=== PATIENT | female | born 1975 | race African-American/Black ===

== ENCOUNTER → 2016-09-12 | Outpatient (CLI) | payer OTHER ==
[~2016-09-12] MED LIST: FLEXERIL PO; FLEXERIL10 MG PO; MEDROL PO; NAPROXEN PO; NORCO 5/325 TAB1 TAB PO; PHENERGAN PO; ZITHROMAX PO
--- NOTE | ~2016-09-12 | US6 ---
[facility] A Service of [facility] RADIOLOGY TEXT RESULTS PATIENT: NAYELI TAVERAS LOCATION: US : 71 UNIT #: [id number] AGE: [address]: Norbert Garzon MD SEX: F ORDER DR: [id number] [facility] [address] [place], [place] [address] [id number] O MR#: [id number] #: [id number] NAME: NAYELI TAVERAS : 1975 SEX: F STUDY DATE/TIME: 09/12/2016 11:01 UNIT: [facility] ROOM: STUDY DESCRIPTION: US Abdominal Limited Attending Physician: Norbert Garzon M.D. Referring Physician: Norbert Garzon M.D. Ordering Physician: Norbert Garzon M.D. Primary Care Physician: [facility]. MEDICAL IMAGING REPORT This report is preliminary unless electronic signature is present EXAM Right upper quadrant abdominal ultrasound. INDICATION Generalized abdominal pain for the past 3 months. PROCEDURE Wodo-scale and Doppler imaging right upper quadrant of the abdomen. COMPARISON None FINDINGS Pancreas mostly obscured by bowel gas. Visualized portions are unremarkable. The liver measures 15.5 cm. There is no liver mass on submitted images. Common duct measures 3 mm. Unremarkable gallbladder. Right kidney measures 10.5 cm. No hydronephrosis. The liver has very slightly increased echotexture compared with the right kidney. IMPRESSION 1. No acute findings. 2. Very slight increased liver echotexture may be normal for the patient or possibly reflect very mild steatosis. Dictated by... Dale Asher M.D. THIS IS AN ELECTRONICALLY VERIFIED REPORT Dale Asher M.D. at 09/14/2016 7:21 AM [facility] A Service [facility] RADIOLOGY TEXT RESULTS PATIENT: NAYELI TAVERAS LOCATION: [facility] : 71 UNIT #: [id number] AGE: [address]: Norbert Garzon MD SEX: F ORDER DR: Sarbjit TD: 09/13/2016 12:40 JOB #: [id number] MEDICAL IMAGING REPORT Page 1 of 1 COPY
== END | disposition home or self-care (01) ==
LOC: CGUS 10:31
DX: R10.9 Unspecified abdominal pain (principal)
CPT/HCPCS: 76705

== ENCOUNTER → 2016-11-29 | Outpatient (CLI) | payer OTHER ==
--- NOTE | ~2016-11-29 | CT2 ---
[facility]. [facility] A Service of [facility] RADIOLOGY TEXT RESULTS PATIENT: NAYELI TAVERAS LOCATION: [facility] : 71 UNIT #: [id number] AGE: [address]: Norbert Garzon MD SEX: F ORDER DR: [id number] [facility] [address] [facility] [facility] [place], [place] [address] [id number] O MR#: [id number] Acc #: [id number] NAME: NAYELI TAVERAS : 1975 SEX: F STUDY DATE/TIME: 11/29/2016 10:36 UNIT: [facility] ROOM: STUDY DESCRIPTION: CT Abd and Pelv W Cont Attending Physician: Norbert Garzon M.D. Referring Physician: Norbert Garzon M.D. Ordering Physician: Norbert Garzon M.D. Primary Care Physician: [facility]. MEDICAL IMAGING REPORT This report is preliminary unless electronic signature is present EXAM CT of the abdomen and pelvis with contrast INDICATIONS Mid abdominal pain off and on for 10 years. Nausea and vomiting as well as constipation and diarrhea. TECHNIQUE Axial CT images were obtained from the dome of the diaphragm through the symphysis pubis following the administration of oral and intravenous contrast material. This CT exam was performed with one or more of the following radiation dose reduction techniques: automatic exposure control, adjustment of mA and/or kV according to patient size, and iterative reconstruction. FINDINGS Images through the lung bases are clear. Liver and gallbladder appear unremarkable. Spleen, stomach and proximal small bowel are within normal limits as are the pancreas and left kidney. Tiny low-attenuation lesion within the right kidney is favored to represent a cyst. There is no evidence of mechanical bowel obstruction. GI tract appears normal. Uterus appears within normal limits as are the ovaries. There may be a trace amount of free fluid within the pelvis but this certainly could be physiologic in a 41-year-old woman. There is a small fat-containing umbilical hernia. Patient's appendix is visualized and is within normal limits. Review of bony windows do not demonstrate any aggressive osseous abnormalities. IMPRESSION No acute intraabdominal or intrapelvic process seen to account for the STS. [facility] A Service of [facility] RADIOLOGY TEXT RESULTS PATIENT: NAYELI TAVERAS LOCATION: [facility] : 71 UNIT #: [id number] AGE: [address]: Norbert Garzon MD SEX: F ORDER DR: patient's symptomatology. Solid organs overall appear unremarkable with the exception of a probable tiny right renal cyst. Bowel appears normal as well. Dictated by... Sylvia King M.D. THIS IS AN ELECTRONICALLY VERIFIED REPORT Sylvia King M.D. at 12/01/2016 7:12 AM Arsalan TD: 11/30/2016 14:56 JOB #: [id number] MEDICAL IMAGING REPORT Page 1 of 1 COPY
[2016-11-29 09:10] LABS: HEMATOCRIT 42.4 % (35.0-45.0); HEMOGLOBIN 14.1 gm/dL (12.0-16.0); MEAN CORPUSCULAR HEMOGLOBIN 31.3 PG (28-34); MEAN CORPUSCULAR HGB CONC 33.3 g/dL (30-36); MEAN PLATELET VOLUME 8.8 FL (6.5-11.5); RED BLOOD COUNT 4.51 X10e (3.90-5.30); RED CELL DISTRIBUTION WIDTH 13.2 % (11.0-15.5)
[2016-11-29 09:50] LABS: BILIRUBIN,TOTAL 0.3 mg/dL (0.2-2.0); BUN/CREATININE RATIO 13.75; CALCIUM SERUM 9.1 mg/dL (8.4-10.2); CREATININE SERUM 0.8 mg/dL (0.6-1.4); GLOM FILT RATE Estimated 104.7 mL/min (>60); POTASSIUM 3.8 mmol/L (3.5-5.1); PROTEIN TOTAL SERUM 7.7 g/dL (6.0-8.3)
[2016-12-01 06:55] LABS: HA AB IGM (HEPPAN) Nonreactive (()); HB CORE AB IGM (HEPPAN) Nonreactive (Nonreactive); HB S AG (HEPPAN) Nonreactive (Nonreactive); HEP C AB (HEPPAN) Nonreactive (Nonreactive); HEP C AB SIGNAL TO CUTOFF 0.04 ratio (<1.00)
== END | disposition home or self-care (01) ==
LOC: CCAT 08:31 → CLAB 08:31 → CCAT 10:00
PROVIDERS: Internal Medicine
DX: R10.84 Generalized abdominal pain (principal)
CPT/HCPCS: 36415; 74177; 80053; 80074; 82140; 85027; Q9967

== ENCOUNTER 2017-01-23 11:10 | Emergency (ER) | payer OTHER ==
[~2017-01-23] VITALS: Ht 162.6 cm; Wt 84.4 kg
== END 2017-01-23 11:50 | disposition home or self-care (01) ==
LOC: CED 11:10 → CFTX 11:10
DX: S16.1XXA Strain of muscle, fascia and tendon at neck level, initial encounter (principal); Z88.8 Allergy status to other drugs, medicaments and biological substances; X50.0XXA Overexertion from strenuous movement or load, initial encounter
CPT/HCPCS: 99283